=== PATIENT | male | born 1990 | race Caucasian/White ===

== ENCOUNTER 2018-07-16 15:58 | Emergency (ER) | payer MEDICAID ==
[~2018-07-16] VITALS: Ht 182.9 cm; Wt 65.8 kg
[2018-07-16 16:04] VITALS: BP 138/80
== END 2018-07-16 17:00 | disposition home or self-care (01) ==
LOC: ER 16:02
DX: L73.8 Other specified follicular disorders (principal); L03.311 Cellulitis of abdominal wall; F10.10 Alcohol abuse, uncomplicated; Y90.9 Presence of alcohol in blood, level not specified

== ENCOUNTER 2018-12-02 09:47 | Emergency (ER) | payer MEDICAID ==
[~2018-12-02] VITALS: Ht 180.3 cm; Wt 65.8 kg
[2018-12-02 09:58] VITALS: BP 128/77
== END 2018-12-02 10:40 | disposition home or self-care (01) ==
LOC: ER 09:47
DX: A49.02 Methicillin resistant Staphylococcus aureus infection, unspecified site (principal); F10.10 Alcohol abuse, uncomplicated; Y90.9 Presence of alcohol in blood, level not specified
CPT/HCPCS: Z7502

== ENCOUNTER 2021-03-08 13:23 | Emergency (ER) | payer MEDICAID ==
[~2021-03-08] VITALS: Ht 177.8 cm; Wt 68.0 kg
[2021-03-08 13:46] VITALS: BP 125/81
[2021-03-08] MEDS ORDERED: HYDR-3980 PO (15:44)
--- NOTE | 2021-03-08 15:54 | NUR ---
Patient discharged to home in stable condition. Written and verbal after care instructions given. Patient verbalizes understanding of instruction.
== END 2021-03-08 15:54 | disposition home or self-care (01) ==
LOC: ER 13:25
DX: S22.41XA Multiple fractures of ribs, right side, initial encounter for closed fracture (principal); S36.112A Contusion of liver, initial encounter; W08.XXXA Fall from other furniture, initial encounter; Y93.89 Activity, other specified; Y92.89 Other specified places as the place of occurrence of the external cause; Y99.8 Other external cause status
CPT/HCPCS: 71250-TC

== ENCOUNTER 2021-06-08 20:37 | Emergency (ER) | payer MEDICAID ==
[~2021-06-08 20:37] MED LIST: HYDR-3980 PO
== END 2021-06-09 00:32 | disposition left against medical advice (07) ==
LOC: ER 20:52
DX: Z53.21 Procedure and treatment not carried out due to patient leaving prior to being seen by health care provider (principal)

== ENCOUNTER 2021-08-31 12:29 | Emergency (ER) | payer BC, MEDICAID ==
[~2021-08-31] VITALS: Ht 182.9 cm; Wt 70.3 kg
[2021-08-31 12:35] VITALS: BP 126/81
--- NOTE | 2021-08-31 12:38 | NUR ---
SEEN AND EVALUATED BY DR STRONG
[2021-09-02] MEDS ORDERED: ENOXAPARIN SODIUM 40 MG/0.4 ML DISP.SYRIN SQ ONE (17:55)
== END 2021-08-31 12:48 | disposition home or self-care (01) ==
LOC: ER 12:33
DX: R10.31 Right lower quadrant pain (principal); Z79.891 Long term (current) use of opiate analgesic
CPT/HCPCS: J1650

== ENCOUNTER 2022-08-25 09:33 | Emergency (ER) | payer BC, MEDICAID ==
[~2022-08-25] VITALS: Ht 182.9 cm; Wt 68.0 kg
--- NOTE | 2022-08-25 09:50 | NUR ---
c/o left ankle pain s/p twisted while running 10/10 pain scale
--- NOTE | 2022-08-25 10:05 | NUR ---
URINAL PROVIDED TO PT
--- NOTE | 2022-08-25 10:15 | NUR ---
at bed side for eval
[2022-08-25] MEDS ORDERED: ACETAMINOPHEN ES 500 MG TABLET PO ONE (11:00)
[2022-08-25] MEDS ORDERED: ACETAMINOPHEN ES 500 MG TABLET ONE (11:01)
--- NOTE | 2022-08-25 11:03 | NUR ---
Patient discharged to home in stable condition. Written and verbal after care instructions given. Patient verbalizes understanding of instruction.
[2022-08-25] MEDS ORDERED: ACET-2030 PO (11:25)
[2022-08-25 11:34] VITALS: BP 131/81
== END 2022-08-25 11:47 | disposition home or self-care (01) ==
LOC: ER 09:38
DX: S92.252A Displaced fracture of navicular [scaphoid] of left foot, initial encounter for closed fracture (principal); X50.1XXA Overexertion from prolonged static or awkward postures, initial encounter; Y93.89 Activity, other specified; Y92.89 Other specified places as the place of occurrence of the external cause; Y99.8 Other external cause status
CPT/HCPCS: 73610-TC